=== PATIENT | male | born 1975 | race Caucasian/White ===

== ENCOUNTER 2021-12-17 11:55 | Inpatient (IN) | payer OTHER ==
[~2021-12-17] VITALS: Ht 188 cm; Wt 134.1 kg
[~2021-12-17 11:55] MED LIST: PROAIR HFA8.5 GM INH
[2021-12-17 14:10] LABS: HEMOGLOBIN 13.9 gm/dl (14.0-17.5); RED BLOOD COUNT 4.61 M/UL (4.20-5.50); WHITE BLOOD COUNT 15.1 K/UL (4.5-11.0)
[2021-12-17 14:22] LABS: BUN/CREATININE RATIO 20 (0-10)
[2021-12-17] MEDS ORDERED: TYLENOL EXTRA500 MG PO (19:06)
[2021-12-18 06:40] LABS: HEMOGLOBIN 13.4 gm/dl (14.0-17.5); RED BLOOD COUNT 4.44 M/UL (4.20-5.50); WHITE BLOOD COUNT 12.6 K/UL (4.5-11.0)
[2021-12-18 07:08] LABS: BUN/CREATININE RATIO 17 (0-10)
[2021-12-20 07:42] LABS: HEMOGLOBIN 12.9 gm/dl (14.0-17.5); RED BLOOD COUNT 4.47 M/UL (4.20-5.50); WHITE BLOOD COUNT 13.4 K/UL (4.5-11.0)
[2021-12-20 08:13] LABS: BUN/CREATININE RATIO 18 (0-10)
[2021-12-20] MEDS ORDERED: DOXYCYCLINE HY100 MG PO (11:08)
[2021-12-20] MEDS ORDERED: CEFADROXIL1 GM PO ×2 (11:08→11:18)
== END 2021-12-20 12:12 | disposition home or self-care (01) | DRG 872 ==
LOC: ER1 11:55 → MED SURG 4 18:00 → CDU 18:00 → MED SURG 4 20:52
PROVIDERS: Internal Medicine; Physician Assistant Medical; ADMIT Internal Medicine
DX: A41.9 Sepsis, unspecified organism (principal); L03.116 Cellulitis of left lower limb; J44.9 Chronic obstructive pulmonary disease, unspecified; M54.9 Dorsalgia, unspecified; I10 Essential (primary) hypertension; J45.909 Unspecified asthma, uncomplicated; E66.9 Obesity, unspecified; Z82.49 Family history of ischemic heart disease and other diseases of the circulatory system; Z80.1 Family history of malignant neoplasm of trachea, bronchus and lung; Z98.890 Other specified postprocedural states; Z79.899 Other long term (current) drug therapy; Z68.37 Body mass index [BMI] 37.0-37.9, adult
CPT/HCPCS: ECHO; 36415; 71045; 73564; 80048; 80053; 80061; 80202; 83036; 83605; 85025; 85652; 86140; 87040; 93005; 93306; 93971; 96374; 96375; 99285; J0690; J0696; J3370; J7030; J7070